=== PATIENT | male | born 1990 | race Hispanic/Latino ===

== ENCOUNTER 2019-08-25 15:54 | Emergency (ER) | payer MEDICAID ==
[2019-08-25 16:47] LABS: ANION GAP 10.8; CHLORIDE,CL 104 mmol/L (101-111); SODIUM,NA 139 mmol/L (135-145)
[2019-08-25] MEDS ORDERED: Iopamidol 612 MG/ML 100 ML Bottle IVPUSH ONE (17:44)
--- NOTE | 2019-08-25 18:02 | EDM.PDOC ---
ED HPI GENERAL MEDICAL PROBLEM - General Chief Complaint: Abdominal Pain Stated Complaint: ABDOMINAL PAIN R SIDE Time Seen by Provider: 08/25/19 17:15 Source of Information: Reports: Patient, Family, RN, RN Notes Reviewed History Limitations: Reports: No Limitations - History of Present Illness INITIAL COMMENTS - FREE TEXT/NARRATIVE: patient presents to ER with complaint of sudden onset sharp right lower quadrant pain. Denies N/V/D. Denies fever or chills. States last bowel movement was between 2 and 4 PM today, was normal for him. Patient states he still has his gallbladder, and appendix. 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 Denies blood in the urine.denies history of kidney stones.patient states when pain initially began, it radiated down into the groin and the right testicle area.patient states he is pain-free at this time. Onset: Today, Sudden Right Upper Abdominal Pain Score (Numeric/FACES): 7 - Related Data Allergies Allergy/AdvReac Type Severity Reaction Status Date / Time No Known Allergies Allergy Verified 08/25/19 16:06 Home Meds: Home Meds . [No Known Home Meds] 08/25/19 [History] Social & Family History - Tobacco Use Smoking Status *Q: Current Every Day Smoker Years of Tobacco use: 11 Packs/Tins Daily: 1 - Caffeine Use Caffeine Use: Reports: Coffee, Energy Drinks, Soda - Alcohol Use Days Per Week of Alcohol Use: 5 Number of Drinks Per Day: 6 Total Drinks Per Week: 30 - Recreational Drug Use Recreational Drug Use: Yes Drug Use in Last 12 Months: Yes Recreational Drug Type: Reports: Marijuana/Hashish Recreational Drug Use Frequency: Daily ED ROS GENERAL - Review of Systems Review Of Systems: ROS reveals no pertinent complaints other than HPI. ED EXAM, GI/ABD - Physical Exam Exam: See Below Exam Limited By: No Limitations General Appearance: Alert, WD/WN, No Apparent Distress Eyes: Bilateral: Normal Appearance, EOMI Ears: Normal External Exam, Hearing Grossly Normal Nose: Normal Inspection Throat/Mouth: Normal Inspection, Normal Voice, No Airway Compromise Head: Atraumatic, Normocephalic Neck: Normal Inspection, Supple, Non-Tender, Full Range of Motion Respiratory/Chest: No Respiratory Distress, No Accessory Muscle Use, Chest Non- Tender, Rales (left lower lobe) Cardiovascular: Normal Peripheral Pulses, Regular Rate, Rhythm, No Edema GI/Abdominal Exam: Normal Bowel Sounds, Soft, Non-Tender, No Organomegaly, No Distention, No Abnormal Bruit, No Mass, Pelvis Stable (Male) Exam: Deferred Rectal (Males) Exam: Deferred Back Exam: Normal Inspection, Full Range of Motion, NT Extremities: Normal Inspection, Normal Range of Motion, Non-Tender, Normal Capillary Refill, No Pedal Edema Neurological: Alert, Oriented, CN II-XII Intact, Normal Cognition, Normal Gait, Normal Reflexes, No Motor/Sensory Deficits Psychiatric: Normal Affect, Normal Mood Skin Exam: Warm, Dry, Intact, Normal Color, No Rash Lymphatic: No Adenopathy Course - Vital Signs Last Recorded V/S: Last Vital Signs Temp 99.1 F 08/25/19 16:06 Pulse 93 08/25/19 16:06 Resp 16 08/25/19 16:06 BP 152/88 H 08/25/19 16:06 Pulse Ox 97 08/25/19 16:06 - Orders/Labs/Meds Orders: Active Orders 24 hr Category Date Time Status Abdomen Pelvis w Cont [CT] Urgent Exams 08/25/19 17:44 Taken Labs: Laboratory Tests 08/25/19 08/25/19 08/25/19 Range/Units 16:25 16:25 17:00 WBC 15.1 H (5.0-10.0) 10^3/uL RBC 5.29 (4.6-6.2) 10^6/uL Hgb 16.3 (14.0-18.0) g/dL Hct 48.0 (40.0-54.0) % MCV 90.7 (80-100) fL MCH 30.8 (27.0-34.0) pg MCHC 34.0 (33.0-35.0) g/dL Plt Count 254 (150-450) 10^3/uL Neut % (Auto) 66.6 (42.2-75.2) % Lymph % (Auto) 23.3 (20.5-50.1) % [place] % (Auto) 8.2 H (2-8) % Eos % (Auto) 1.4 (1.0-3.0) % Baso % (Auto) 0.5 (0.0-1.0) % Add Manual Diff Yes Neutrophils % (Manual) 65 (42-75) % Band Neutrophils % 1 % Lymphocytes % (Manual) 30 (20-50) % Monocytes % (Manual) 4 (2-8) % Sodium 139 (135-145) mmol/L Potassium 3.8 (3.6-5.0) mmol/L Chloride 104 (101-111) mmol/L Carbon Dioxide 28.0 (21.0-31.0) mmol/L Anion Gap 10.8 BUN 22 H (7-18) mg/dL Creatinine 1.0 (0.6-1.3) mg/dL Est Cr Clr Drug Dosing 119.63 mL/min Estimated GFR (MDRD) > 60 BUN/Creatinine Ratio 22.00 Glucose 87 (74-105) mg/dL Calcium 9.1 (8.4-10.2) mg/dl Total Bilirubin 0.8 (0.2-1.0) mg/dL AST 31 (10-42) IU/L ALT 55 (10-60) IU/L Alkaline Phosphatase 61 (42-121) IU/L Total Protein 7.6 (6.7-8.2) g/dl Albumin 4.4 (3.2-5.5) g/dl Globulin 3.2 Albumin/Globulin Ratio 1.38 Amylase 84 (28-100) U/L Lipase 29 (22-51) U/L Urine Color Yellow (YELLOW) Urine Appearance Clear (CLEAR) Urine pH 6.0 (5.0-9.0) Ur Specific [place] 1.025 (1.005-1.030) Urine Protein Negative (NEGATIVE) Urine Glucose (UA) Negative (NEGATIVE) Urine Ketones Negative (NEGATIVE) Urine Occult Blood Negative (NEGATIVE) Urine Nitrite Negative (NEGATIVE) Urine Bilirubin Negative (NEGATIVE) Urine Urobilinogen 0.2 (0.2-1.0) mg/dL Ur Leukocyte Esterase Negative (NEGATIVE) Urine Opiates Screen (NEGATIVE) Ur Oxycodone Screen (NEGATIVE) Urine Methadone Screen (NEGATIVE) Ur Barbiturates Screen (NEGATIVE) U Tricyclic Antidepress (NEGATIVE) Ur Phencyclidine Scrn (NEGATIVE) Ur Amphetamine Screen (NEGATIVE) U Methamphetamines Scrn (NEGATIVE) Urine MDMA Screen (NEGATIVE) U Benzodiazepines Scrn (NEGATIVE) Urine Cocaine Screen (NEGATIVE) U Marijuana (THC) Screen (NEGATIVE) 08/25/19 Range/Units 17:00 WBC (5.0-10.0) 10^3/uL RBC (4.6-6.2) 10^6/uL Hgb (14.0-18.0) g/dL Hct (40.0-54.0) % MCV (80-100) fL MCH (27.0-34.0) pg MCHC (33.0-35.0) g/dL Plt Count (150-450) 10^3/uL Neut % (Auto) (42.2-75.2) % Lymph % (Auto) (20.5-50.1) % [place] % (Auto) (2-8) % Eos % (Auto) (1.0-3.0) % Baso % (Auto) (0.0-1.0) % Add Manual Diff Neutrophils % (Manual) (42-75) % Band Neutrophils % % Lymphocytes % (Manual) (20-50) % Monocytes % (Manual) (2-8) % Sodium (135-145) mmol/L Potassium (3.6-5.0) mmol/L Chloride (101-111) mmol/L Carbon Dioxide (21.0-31.0) mmol/L Anion Gap BUN (7-18) mg/dL Creatinine (0.6-1.3) mg/dL Est Cr Clr Drug Dosing mL/min Estimated GFR (MDRD) BUN/Creatinine Ratio Glucose (74-105) mg/dL Calcium (8.4-10.2) mg/dl Total Bilirubin (0.2-1.0) mg/dL AST (10-42) IU/L ALT (10-60) IU/L Alkaline Phosphatase (42-121) IU/L Total Protein (6.7-8.2) g/dl Albumin (3.2-5.5) g/dl Globulin Albumin/Globulin Ratio Amylase (28-100) U/L Lipase (22-51) U/L Urine Color (YELLOW) Urine Appearance (CLEAR) Urine pH (5.0-9.0) Ur Specific [place] (1.005-1.030) Urine Protein (NEGATIVE) Urine Glucose (UA) (NEGATIVE) Urine Ketones (NEGATIVE) Urine Occult Blood (NEGATIVE) Urine Nitrite (NEGATIVE) Urine Bilirubin (NEGATIVE) Urine Urobilinogen (0.2-1.0) mg/dL Ur Leukocyte Esterase (NEGATIVE) Urine Opiates Screen Negative (NEGATIVE) Ur Oxycodone Screen Negative (NEGATIVE) Urine Methadone Screen Negative (NEGATIVE) Ur Barbiturates Screen Negative (NEGATIVE) U Tricyclic Antidepress Negative (NEGATIVE) Ur Phencyclidine Scrn Negative (NEGATIVE) Ur Amphetamine Screen Negative (NEGATIVE) U Methamphetamines Scrn Negative (NEGATIVE) Urine MDMA Screen Negative (NEGATIVE) U Benzodiazepines Scrn Negative (NEGATIVE) Urine Cocaine Screen Negative (NEGATIVE) U Marijuana (THC) Screen Positive H (NEGATIVE) Meds: Medications Discontinued Medications Generic Name Dose Route Start Last Admin Trade Name Freq PRN Reason Stop Dose Admin Iopamidol 100 ml 08/25/19 17:44 08/25/19 17:48 Isovue-300 (61%) IVPUSH 08/25/19 17:45 100 ml ONETIME ONE Administration - Radiology Interpretation Free Text/Narrative:: CT abdomen/pelvis with contrast: FINDINGS: Liver: There is diffuse fatty infiltration of the liver. Gallbladder and bile ducts: Normal. No calcified stones. No ductal dilation. Pancreas: Normal. No ductal dilation. Spleen: Normal. No splenomegaly. Adrenals: Normal. No mass. Kidneys and ureters: Normal. No hydronephrosis. Stomach and bowel: There are scattered diverticuli in the distal colon. Pericolonic fat planes are preserved. Appendix: No evidence of appendicitis. Intraperitoneal space: Unremarkable. Trace free fluid in pelvic cul-de-sac. No free air. Vasculature: Unremarkable. No abdominal aortic aneurysm. Lymph nodes: Unremarkable. No enlarged lymph nodes. Bladder: Unremarkable as visualized. Reproductive: Unremarkable as visualized. Bones/joints: Unremarkable. No acute fracture. Soft tissues: Unremarkable. IMPRESSION: Colonic diverticulosis. No CT evidence of diverticulitis. Nonspecific trace free fluid in pelvic cul-de-sac. Hepatic steatosis. Thank you for allowing us to participate in the care of your patient. Dictated and Authenticated by: Vinny Spencer MD 08/25/2019 6:24 PM Central Time ([place] & [place]) See radiologist report Departure - Departure Time of Disposition: 18:44 Disposition: Home, Self-Care 01 Condition: Fair Clinical Impression: Gastroenteritis, Diverticulosis, Hepatic steatosis Abdominal pain Qualifiers: Abdominal location: right lower quadrant Qualified Code(s): R10.31 - Right lower quadrant pain - Discharge Information *PRESCRIPTION DRUG MONITORING PROGRAM REVIEWED*: No *COPY OF PRESCRIPTION DRUG MONITORING REPORT IN PATIENT BRIAN: No Instructions: Viral Gastroenteritis, Adult, [id number], Nonalcoholic Fatty Liver Disease Diet, Fatty Liver, Abdominal Pain, Adult, [id number], Diverticulosis Forms: ED Department Discharge Additional Instructions: May use Tylenol and ibuprofen as directed for pain drink plenty of water Follow-up with your primary care provider Return to the ER with any worsening problems i.e. fever, chills, vomiting, diarrhea - My Orders Last 24 Hours: My Active Orders 08/25/19 17:44 Abdomen Pelvis w Cont [CT] Urgent - Assessment/Plan Last 24 Hours: My Active Orders 08/25/19 17:44 Abdomen Pelvis w Cont [CT] Urgent
== END 2019-08-25 18:57 | disposition home or self-care (01) ==
LOC: DL.ED 15:54
DX: K52.9 Noninfective gastroenteritis and colitis, unspecified (principal); K57.90 Diverticulosis of intestine, part unspecified, without perforation or abscess without bleeding; K76.0 Fatty (change of) liver, not elsewhere classified; F17.210 Nicotine dependence, cigarettes, uncomplicated
CPT/HCPCS: 36415; 74177; 80053; 80305; 81003; 82150; 83690; 85025; 99284; Q9967

== ENCOUNTER 2022-04-14 13:39 | Emergency (ER) | payer MEDICAID ==
[2022-04-14] MEDS ORDERED: Lidocaine 2% Viscous Solution 15 ML UD PO ONE (14:12)
[2022-04-14] MEDS ORDERED: Ketorolac 30 MG/ML SDV IM ONE (14:12)
== END 2022-04-14 14:27 | disposition home or self-care (01) ==
LOC: DL.ED 13:39
DX: K04.7 Periapical abscess without sinus (principal); K02.9 Dental caries, unspecified; K00.7 Teething syndrome; I10 Essential (primary) hypertension; F17.210 Nicotine dependence, cigarettes, uncomplicated
CPT/HCPCS: 96372; 99282; 99283; A9270-GY; J1885